=== PATIENT | male | born 1955 | race Caucasian/White ===

== ENCOUNTER 2017-02-09 13:55 | Inpatient (IN) | payer MEDICARE ==
[~2017-02-09] VITALS: Ht 170.2 cm; Wt 31.8 kg
[2017-02-09 16:12] LABS: APTT 32.6 SECONDS (22.8-39.4); INR 1.07 (0.85-1.17); PROTIME 13.5 SECONDS (11.6-15.0)
[2017-02-09 18:27] LABS: BASOPHILS 0.2 % (0-2); EOSINOPHILS 0.7 % (0-7); HEMATOCRIT 22.2 % (42.0-54.0); IMMATURE GRANULOCYTES 0.1 % (0-5); LYMPHOCYTES 16.6 % (15-50); MCH 31.1 pg (26.0-34.0); MCHC 33.8 g/dL (31.0-37.0); MCV 92.1 fL (80.0-100.0); MEAN PLATELET VOLUME 9.9 fL (7.4-10.4); MONOCYTES 4.1 % (2-11); NEUTROPHILS 78.3 % (40-80); PLATELET COUNT 193 10x3/uL (130-400); RBC 2.41 10x6/uL (4.20-6.10); RDW 14.1 % (11.5-14.5); WBC 9.7 10x3/uL (4.8-10.8)
[2017-02-09 18:49] LABS: ALBUMIN 2.1 g/dL (3.4-5.0); ALKALINE PHOSPHATASE 197 U/L (46-116); ALT (SGPT) 15 U/L (10-68); BILIRUBIN - TOTAL 0.19 mg/dL (0.2-1.3); CALC OSMOLALITY 280 mosm/kg (275-300); CALCIUM 7.4 mg/dL (8.5-10.1); CARBON DIOXIDE 32.3 mmol/L (21.0-32.0); CHLORIDE - SERUM 104 mmol/L (98-107); CREATININE - SERUM 0.6 mg/dL (0.6-1.3); GLUCOSE 112 mg/dL (74-106); PROTEIN - SERUM 5.8 g/dL (6.4-8.2); SODIUM 139 mmol/L (136-145); UREA NITROGEN 17 mg/dL (7-18); eGFR NON AFRICAN AMERICAN > 90 mL/min (90-120)
[2017-02-09 19:13] LABS: HEMOGLOBIN 7.5 g/dL (13.5-17.5)
--- NOTE | 2017-02-10 00:35 | NUR ---
PT ARRIVED TO ROOM VIA ER BED WITH STAFF, PT STATED HE DID NOT WANT TO BE HERE AND WANTED TO GO BACK TO [facility], WHILE PT WAS BEING TRANSFERED FROM ER BED TO BED IN ROOM, RECIEVED CALL FROM HOSPICE NURSE WHO WAS FILLING IN FOR THE HOSPICE NURSE ANGELICA WORKING. STATED SHE DID NOT KNOW ANYTHING ABOUT PT AND UNAWARE PT IS HOSPICE PT. DR BATISTA CONSULTED DUE TO FX HIP, CT WAS ORDERED, NO MEDS ON PT APR. PT REFUSED TO HAVE CT DONE, TALKED TO PT AND TOLD HIM NECESSITY OF TESTS ORDERED, PT STATED HUNGRY, HAS NOT EATEN ALL DAY, ADVISED PT THAT IF HE DID CT I WOULD HAVE HIM A SANDWHICH AND SPRITE READY WHEN HE RETURNED, PT RELUCTANTLY OBLIGED. 2244 - WENT TO GET BLOOD FROM LAB AND START IT, WHEN I ARRIVED IN PT ROOM PT DAUGHTER GILBERTO AND SON IN LAW WERE PRESENT. STATED PT HAS SEIZURES AND NEEDS HIS MEDS, ALSO STATED PT HAS LUNG CANCER AND ASLO HAS COPD. PT IS NOT ON O2 PT DAUGHTER STATED PT HAS REFUSED AND BEEN REFUSING TREATMENT. SEES DR BAI, NODULES FOUND ON LUNGS WITH PROTEIN IN THEM BUT PT REFUSES FURTHER TESTING SO THEY ARE ASSUMING LUNG CANCER. WENT OVER LABS WITH PT AND HGB IS 7.5 HCT 22..2 TOLD ABOUT BLOOD ORDERED, PT REFUSED TO RECIEVE BLOOD, FAMILY IN ROOM AND GILBERTO STATED HE WILL REFUSE EVERYTHING AND JUST LET HIM. PT IS A SMOKER, ADVISED WE CAN ORDER PATCH, PT STATED NO WILL REFUSE PATCH SO SON IN LAW GAVE PT DIP BECAUSE PT DIPS WELL. PT DAUGHTER LEFT AND ADVISED TO CALL IF SHE CAN HELP. SPOKE TO KATE VAZQUEZ ABOUT REFUSAL OF BLOOD, CALLED [facility]GE LO[employer]ER SPOKE TO SAVANNA, ADVISED TO NOTATE AND AND HONOR PT WISHES. PT IS ALERT AND ORIENTED
[2017-02-10 02:04] VITALS: BP 96/63; Ht 170.2 cm; Wt 31.8 kg
[2017-02-10 04:00] VITALS: BP 107/65
[2017-02-10] MEDS ORDERED: GLUCOPHAGE850 MG PO (04:43)
[2017-02-10] MEDS ORDERED: MEGACE40 MG PO (04:45)
[2017-02-10] MEDS ORDERED: REMERON15 MG PO (04:46)
[2017-02-10] MEDS ORDERED: LASIX20 MG PO (04:46)
[2017-02-10] MEDS ORDERED: TYLENOL W/CODEI1 TAB (04:48)
[2017-02-10] MEDS ORDERED: PHENYTOIN100 MG/4 M PO (04:50)
[2017-02-10] MEDS ORDERED: K-DUR20 MEQ PO (04:50)
[2017-02-10] MEDS ORDERED: ZOFRAN4 MG PO (04:51)
[2017-02-10] MEDS ORDERED: COREG 3.1253.125 MG PO (04:52)
[2017-02-10] MEDS ORDERED: PEPCID20 MG PO (04:53)
[2017-02-10] MEDS ORDERED: ZANTAC150 MG PO (04:54)
[2017-02-10] MEDS ORDERED: FERROUS SULFAT325 MG PO (04:55)
[2017-02-10] MEDS ORDERED: ALBUTEROL0.63 MG/3 INH (04:56)
[2017-02-10] MEDS ORDERED: PROVENTIL HFA6.7 GM INH (04:59)
[2017-02-10] MEDS ORDERED: SENNA LAXATIVE8.6 MG PO (05:00)
[2017-02-10 07:10] VITALS: BP 111/79
--- NOTE | 2017-02-10 09:42 | NUR ---
Patient Name: ELIAS GONZALEZ Admission Status: ER Accout number: [id number] Admission Date: 02-09-2017 : 1955 Admission Diagnosis: Attending: PEDRO BRICEÑO Current LOS: 1 Anticipated DC Date: Planned Disposition: Hospice Medical Facility Primary Insurance: MEDICARE A & B Discharge Planning Comments: CM SPOKE WITH PATIENT ABOUT DISCHARGE PLANNING, HE STATED HE WAS ON HOSPICE IN [place] AND HE WASNTED TO GO BACK, BUT COULD NOT TELL ME ANYMORE THAN THAT. AFTER CALLING AROUND I SPOKE WITH LESLY WITH [facility] AND SHE STATED THAT THE PATIENT WAS ON HOSPICE AT [facility]. CM CALLED DR BRICEÑO AND GAVE HIM THE INFO. NEW ORDER ENTERED TO READMIT ON HOSPICE CM WILL CONTINUE TO FOLLOW AND ASSIST WITH DSICHARGE PLANNING NEEDS. PCP? [facility] Case Manager: Neisha Ordaz * Is the patient Alert and Oriented? Yes 0 * PCP UNKNOWN 0 * Pharmacy UNKNOWN 0 * Preadmission Environment Hospice 0 * Facility Name [facility] 0 * ADLs Total Dependent 0 * List name and contact numbers for known caregivers / representatives who currently or will assist patient after discharge: FLORENCE LENNON (DAUGHTER) [phone] 0 * Additional services required to return to the preadmission environment? No 0 * Can the patient safely return to the preadmission environment? Yes 0 * Has this patient been hospitalized within the prior 30 days at any hospital? No 0 Grand Total: 0
--- NOTE | 2017-02-10 10:20 | NUR ---
PAM WITH [facility] AND STATED THAT WE CAN SEND PATIENT BACK TO [place] AND THEY WOULD ADMIT FROM THERE. CM WILL CALL DR BRICEÑO AND LET HIM KNOW
--- NOTE | 2017-02-10 11:14 | NUR ---
[facility] CONTACTED FOR REPORT. ALSO CONTACTED DAUGHTER, JACOB, REGARDING TRANSPORTATION. DR. BATISTA AWARE OF PT'S REFUSAL OF SURGERY. DR. BRICEÑO AWARE OF PT REFUSING ALL TREATMENT.
--- NOTE | 2017-02-10 11:22 | NUR ---
[facility] CONTACTED FOR TRANSPORTATION.
--- NOTE | 2017-02-10 11:57 | NUR ---
[facility] HERE TO TRANSFER PT BACK TO [facility]. PIV TO Keisha MONTES [facility] DC'D WITH CATHETER INTACT. PRESSURE AND DRESSING APPLIED. PT UNABLE TO SIGN DC PAPERS. DC PAPERS AND BELONGINGS SENT WITH PT.
== END 2017-02-10 11:59 | disposition home health service (06) | DRG 535 ==
LOC: D.ER 13:55 → D.MS 19:51
PROVIDERS: Emergency Medicine; ADMIT Family Medicine
DX: S72.111A Displaced fracture of greater trochanter of right femur, initial encounter for closed fracture (principal); E41 Nutritional marasmus; Z68.1 Body mass index [BMI] 19.9 or less, adult; W19.XXXA Unspecified fall, initial encounter; Y92.129 Unspecified place in nursing home as the place of occurrence of the external cause; E11.9 Type 2 diabetes mellitus without complications; I10 Essential (primary) hypertension; Z95.0 Presence of cardiac pacemaker; F17.200 Nicotine dependence, unspecified, uncomplicated